=== PATIENT | male | born 1990 | race Caucasian/White ===

== ENCOUNTER 2018-10-23 15:43 | Emergency (ER) | payer OTHER ==
--- NOTE | 2018-10-23 16:16 | ED Physician Documentation ---
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 He is right- hand dominant. Tetanus status is up-to-date. Review of Systems Skin: reports: Laceration (s) Neurologic: denies: Focal weakness, Numbness PD PAST MEDICAL HISTORY - Past Medical History Past Medical History: No Endocrine/Autoimmune: None - Past Surgical History Past Surgical History: No - Allergies Allergies/Adverse Reactions: Allergies Allergy/AdvReac Type Severity Reaction Status Date / Time No Known Drug Allergies Allergy Verified 10/23/18 15:52 - Social History Does the pt smoke?: No Smoking Status: Never smoker Does the pt drink ETOH?: No Does the pt have substance abuse?: No - Immunizations Immunizations are current?: Yes - POLST Patient has POLST: No PD ED PE NORMAL - Vitals Vital signs reviewed: Yes (normal) - General General: Alert and oriented X 3 - Respiratory Respiratory: No respiratory distress - Extremities Extremities: Other (1 cm flap type laceration at the tip of the left thumb.) - Neuro Neuro: No motor deficit, No sensory deficit Results - Vitals Vitals: Vital Signs - 24 hr 10/23/18 15:49 Temperature 37.0 C Heart Rate 78 Respiratory 17 Rate Blood Pressure 132/64 H O2 Saturation 99 Oxygen O2 Source Room air Procedures - Laceration (location) left thumb Wound type: Flap, Clean Neurovascular status: Sensory intact, Motor intact, Vascular intact Anesthesia: Lidocaine 1% with epi Wound Preparation: Hibiclens, Irrigated copiously NS, Wound explored, To the base. No: FB identified Skin layer closure: Nylon, Interrupted, Size #-0 - enter number (5), Sutures - enter # (4) Other: Patient tolerated well, No complications, Neurovascular intact, Dressing applied, Tetanus UTD Complexity: Simple PD MEDICAL DECISION MAKING - ED course Complexity details: considered differential, d/w patient ED course: The patient's presentation is most consistent with flap type laceration at the tip of the left thumb. There is no evidence of neurovascular involvement or bony injury. Treatment in the emergency department included suture repair after topical anesthetic and thorough cleaning of the wound. 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 Departure - Departure Disposition: 01 Home, Self Care Clinical Impression: Thumb laceration Qualifiers: Encounter type: initial encounter Damage to nail status: without damage Foreign body presence: without foreign body Laterality: left Qualified Code(s): S61.012A - Laceration without foreign body of left thumb without damage to nail, initial encounter Condition: Stable Instructions: ED Laceration Hand Comments: Keep the wound clean, and apply antibiotic ointment daily. You can use Tylenol or ibuprofen if needed for discomfort. Follow-up for suture removal in about 10 days. Follow-up sooner or return to the emergency department if you develop any sign of infection, or otherwise worsening symptoms.
[2018-10-23 16:23] VITALS: BP 132/64
== END 2018-10-23 16:33 | disposition home or self-care (01) ==
LOC: ED 15:43
DX: S61.012A Laceration without foreign body of left thumb without damage to nail, initial encounter (principal); W26.0XXA Contact with knife, initial encounter; Y99.0 Civilian activity done for income or pay
CPT/HCPCS: 1040M; 12001; 99282; 99283

== ENCOUNTER 2023-04-01 08:00 | Outpatient (CLI) | payer MEDICAID ==
--- NOTE | 2023-04-01 19:15 | XRAY Report ---
PROCEDURE: Hand 3 View RT INDICATIONS: CONTUSION OF RIGHT HAND TECHNIQUE: 3 views of the hand(s) acquired. COMPARISON: None. FINDINGS: Bones: No fractures or dislocations. No suspicious bony lesions. Soft tissues: No suspicious soft tissue calcifications or masses. IMPRESSION: No acute bony abnormality. No radiopaque foreign body. Reviewed by: Kenyatta Barth MD on 04/01/2023 7:13 PM PST Approved by: Kenyatta Barth MD on 04/01/2023 7:13 PM PST Station ID: [id number]
== END 2023-04-01 23:59 | disposition home or self-care (01) ==
LOC: DI.S 08:00
PROVIDERS: ATTEND Physician Assistant Medical
DX: S60.221A Contusion of right hand, initial encounter (principal)

== ENCOUNTER 2023-04-04 08:00 | Outpatient (CLI) | payer MEDICAID | END 2023-04-04 23:59 | disposition home or self-care (01) | LOC: LAB 08:00 | PROVIDERS: ATTEND Nurse Practitioner | DX: J02.9 Acute pharyngitis, unspecified (principal) | CPT/HCPCS: 87070 ==